=== PATIENT | female | born 2000 | race Caucasian/White ===

== ENCOUNTER 2024-07-09 15:32 | Emergency (ER) | payer OTHER, SELFPAY ==
[2024-07-09 15:35] VITALS: BP 143/84
[2024-07-09 16:16] LABS: % Basophils 0.6 % (0-2); % Eosinophils 1.5 % (0-6); % Immature Granulocytes 0.1 % (0-0.5); % Lymphocytes 33.2 % (20.5-51.1); % Monocytes 6.8 % (1.7-9.3); % Neutrophils 57.8 % (42.2-75.2); Absolute Eosinophils 0.1 10^3/uL (0-0.7); Absolute Lymphocytes 2.3 10^3/uL (1.2-3.4); Absolute Monocytes 0.5 10^3/uL (0.1-0.6); Absolute Neutrophils 3.9 10^3/uL (1.4-6.5); Hematocrit 35.8 % (37.0-47.0); Hemoglobin 12.5 g/dL (12.0-16.0); Mean Corp Hgb Conc. 34.9 g/dL (33.0-37.0); Mean Corpuscular Hgb 31.9 pg (27.0-31.0); Mean Corpuscular Volume 91.3 fL (81.0-99.0); Mean Platelet Volume 10.5 fL (7.4-10.4); Nucleated Red Blood Cells % 0 %; Platelet Count 222 10^3/uL (130-400); Red Blood Cell Count 3.92 10^6/uL (4.20-5.40); Red Cell Dist. Width 12.7 % (11.5-14.5); White Blood Cell Count 6.8 10^3/uL (4.8-10.8)
[2024-07-09 16:23] LABS: HCG, Serum Qualitative Screen Negative
[2024-07-09 16:35] LABS: ALT (SGPT) 16 U/L (0-35); AST (SGOT) 23 U/L (14-36); Alkaline Phosphatase 53 U/L (38-126); Blood Urea Nitrogen 11 mg/dl (7-17); Calcium 9.8 mg/dl (8.4-10.2); Carbon Dioxide 25 mmol/L (22-30); Chloride 102 mmol/L (98-107); Glucose 87 mg/dl (70-99); Lipase 81 U/L (23-300); Potassium 4.6 mmol/L (3.5-5.1); Sodium 137 mmol/L (135-145); Total Bilirubin 0.2 mg/dl (0.2-1.3); Total Protein 7.2 g/dl (6.3-8.2); eGFR > 60.00
--- NOTE | 2024-07-09 20:11 | ED.GENMED ---
History of Present Illness
<Rebeca Capone PA-C - Last Filed: 07/10/24 00:24>
General
Chief Complaint: Abdominal Pain
Source: patient
Exam Limitations: none
Time Seen by Provider: 07/09/24 19:27
Nursing documentation reviewed up to this point in time: agreed with
History of Present Illness
History of Present Illness:
Patient is a 24-year-old female presenting emergency department for evaluation abdominal pain. Patient initially reports onset of left sided abdominal pain which has been constant over the past few days. However�patient states this morning pain
seem to transition into right side of her abdomen. Patient reports very little appetite and 1 episode of vomiting 2 days ago. She has had nausea over the past 2 days, as well. No diarrhea. She has had some urinary frequency although denies any
dysuria or hematuria. No abnormal vaginal bleeding or discharge. Patient is currently sexually active with 1 partner�no suspicion for STD.
Patient's last menstrual period was approximate 2 weeks ago.
Review of Systems
<Rebeca Capone PA-C - Last Filed: 07/10/24 00:24>
Review of Systems
Allergies reviewed?: Yes
All Other Systems: ROS reviewed and negative except as documented in HPI and ROS
Phy Exam
<Rebeca Capone PA-C - Last Filed: 07/10/24 00:24>
Physical Exam
Physical Exam:
Vitals: Patient's vital signs are stable. Afebrile
General: Patient is well appearing, no acute distress. Nontoxic appearing
Skin: Warm and dry, no rashes or lesions
Head: Normocephalic, atraumatic
Eyes: Sclera nonicteric. EOMs intact. No nystagmus.
Throat: Protecting airway
Neck: Normal ROM, no cervical spine tenderness, no meningismus
Cardiac: Regular rate and rhythm, no murmurs.
Pulm: Normal respiratory effort, no wheezes, rales, rhonchi heard on exam.
Abdomen: Abdomen soft. Mild abdominal tenderness throughout lower abdomen/pelvis. No focal tenderness at McBurney's point. No rebound tenderness or guarding. No CVA tenderness
Extremities: No evidence of cyanosis or edema. Palpable DP pulses
Neuro: AAOx3. Grossly intact.
Psychiatric: Normal affect.
Course
<Rebeca Capone PA-C - Last Filed: 07/10/24 00:24>
Orders/Labs/Results
Orders:
Orders
07/09/24 15:38
Test Result ONCE
07/09/24 15:44
Complete Blood Count/With Diff Urgent
Comprehensive Metabolic Panel Urgent
HCG, Serum Qualitative Screen Urgent
Lipase Urgent
07/09/24 19:59
0.9% Sodium Chloride 1000 ml [Nss] 1,000 ml IV BOLUS
Ketorolac [Toradol] 15 mg IV NOW STA
Ondansetron Injectable [Zofran] 4 mg IV NOW STA
US Pelvis Only (non-obstetric) Urgent
Comment:
Reason For Exam: Pelvic pain
07/09/24 22:11
Urinalysis Reflex To Culture Urgent
Date Specimen was Collected: 07/09/24
Time Specimen was Collected: 20:14
Abnormal Lab Results
07/09/24
15:44
RBC 3.92 L 10^6/uL
(4.20-5.40)
Hct 35.8 L %
(37.0-47.0)
MCH 31.9 H pg
(27.0-31.0)
MPV 10.5 H fL
(7.4-10.4)
07/09/24 15:44
07/09/24 15:44
Vital Signs
Initial and Last Documented VS:
Initial Vital Signs
Temp Pulse Resp BP Pulse Ox
98.4 F 101 18 143/84 99
07/09/24 15:35 07/09/24 15:35 07/09/24 15:35 07/09/24 15:35 07/09/24 15:35
Last Documented Vital Signs
Temp Pulse Resp BP Pulse Ox
98.4 F 86 18 128/73 99
07/09/24 15:35 07/09/24 23:10 07/09/24 23:10 07/09/24 23:10 07/09/24 23:10
<Caprice Joyce, DO - Last Filed: 07/09/24 22:57>
Orders/Labs/Results
Orders:
Orders
07/09/24 15:38
Test Result ONCE
07/09/24 15:44
Complete Blood Count/With Diff Urgent
Comprehensive Metabolic Panel Urgent
HCG, Serum Qualitative Screen Urgent
Lipase Urgent
07/09/24 19:59
0.9% Sodium Chloride 1000 ml [Nss] 1,000 ml IV BOLUS
Ketorolac [Toradol] 15 mg IV NOW STA
Ondansetron Injectable [Zofran] 4 mg IV NOW STA
US Pelvis Only (non-obstetric) Urgent
Comment:
Reason For Exam: Pelvic pain
07/09/24 22:11
Urinalysis Reflex To Culture Urgent
Date Specimen was Collected: 07/09/24
Time Specimen was Collected: 20:14
Abnormal Lab Results
07/09/24
15:44
RBC 3.92 L 10^6/uL
(4.20-5.40)
Hct 35.8 L %
(37.0-47.0)
MCH 31.9 H pg
(27.0-31.0)
MPV 10.5 H fL
(7.4-10.4)
07/09/24 15:44
07/09/24 15:44
Vital Signs
Initial and Last Documented VS:
Initial Vital Signs
Temp Pulse Resp BP Pulse Ox
98.4 F 101 18 143/84 99
07/09/24 15:35 07/09/24 15:35 07/09/24 15:35 07/09/24 15:35 07/09/24 15:35
Last Documented Vital Signs
Temp Pulse Resp BP Pulse Ox
98.4 F 86 18 128/73 99
07/09/24 15:35 07/09/24 23:10 07/09/24 23:10 07/09/24 23:10 07/09/24 23:10
<Rebeca Capone PA-C - Last Filed: 07/10/24 00:24>
MDM/Problems Addressed
Differential Diagnosis Includes:
Not limited to: UTI, pyelonephritis, kidney stone, ovarian cyst, ovarian torsion, mesenteric adenitis, mittelschmerz, appendicitis, etc.
MDM/Problems Addressed:
24-year-old female presenting with few days of lower abdominal discomfort. Some associated nausea and urinary frequency. Mild anorexia. No known fevers, diarrhea. No abnormal vaginal discharge or bleeding. Patient has stable vital signs and is
afebrile on arrival to emergency department. On exam�patient is very well-appearing, nontoxic. Her abdomen is soft with mild tenderness in the lower abdomen/pelvis on both right and left side. No rebound tenderness or guarding. No CVA
tenderness. Cardio/pulmonary assessment unremarkable. Labs were initiated in triage and resulted prior to my assessment. There is no leukocytosis or left shift. Chemistry without any abnormalities. test is negative. Differential at
this time although lower suspicion for acute intra-abdominal infection given patient is afebrile with no leukocytosis although appendicitis/other infections remain in differential. Somewhat high suspicion for pelvic etiology given exam. Will give
IV fluids and Toradol. Will check urinalysis and start with pelvic ultrasound. Plan for possible CT abdomen initial workup negative.
Update: Urinalysis reviewed which shows no signs of infection or red blood cells. Pelvic ultrasound report reviewed which does show a moderate amount of free fluid in the cul-de-sac. However no specific ovarian cyst. Blood flow documented to both
ovaries. High suspicion for likely ruptured ovarian cyst given free fluid. However given not definitive diagnosis CT scan patient at length. Shared decision making utilized and patient prefers to hold on CT scan at this time. She is feeling
better after Toradol. Did discuss possibility of missing possible appendicitis/other abdominal pathology without CAT scan which patient understands. She will monitor closely at home any signs of worsening infection and return promptly.
However�feel this is a reasonable approach given patient's hemodynamic stability and normal laboratory analysis.
Chronic conditions affecting care:
N/A
Acute Exacerbation and/or Progression of Chronic Illness:
N/A
<Rebeca Capone PA-C - Last Filed: 07/10/24 00:24>
*Radiology
Radiology exam reviewed: radiology read reviewed
*Pulse Oximetry
Patient hypoxic: no
*EKG
Interpreted by ED Provider?: NA
*Admitting Officer Interpretation
Rate: Admitting Officer- N/A
*Critical Care Note
Total Time (30-74mins, 75-104mins- exclusive of procedures): Not Applicable
ED Attending Note
<Caprice Joyce DO - Last Filed: 07/09/24 22:57>
ED Attending Note
Patient seen and examined by attending physician: Yes
I performed the substantive portion of visit, reviewed & personally made and approve the management plan that is documented in note by myself or MEMO.: Yes
I performed a history and physical exam of patient and discussed management with resident, I reviewed resident's note and agree with documented findings and plan of care.: Yes
ED Attending Note:
24-year-old female without significant past medical history presenting for lower abdominal pain. Symptoms started 2 days ago. Initially started as left lower crampy abdominal pain, has since migrated to the right lower abdomen. Also reports
urinary frequency with history of UTI in the past. Denies any abdominal surgeries. Does report an episode of vomiting 2 days ago and overall decreased p.o. intake. Denies fever. Vital signs are normal.
On exam patient is overall well-appearing, no acute distress or discomfort. She is nontoxic in appearance with overall benign abdominal exam, mild tenderness to the right lower pelvic/quadrant region. Differential considerations include cystitis
versus ovarian cyst versus appendicitis. Initiated workup with laboratory analysis and ultrasound imaging, urinalysis, urine
22:40 -ultrasound shows normal flow to bilateral ovaries, however reportedly moderate amount of free fluid in the pelvis. Possible ruptured cyst. Discussed proceeding with CT imaging for location of pain, however patient reports her pain is
currently controlled and would prefer to monitor symptoms. Feel reasonable given hemodynamic stability and normal laboratory analysis. Strict return precautions communicated and patient verbalized understanding
-
Portions of this chart may have been created with voice recognition software.� Occasional wrong word or��sound alike� substitutions may have occurred due to the inherent limitations of voice recognition software.
Discharge Plan
Departure
Patient Disposition: Home (Routine Discharge)
Date of Disposition: 07/09/24
Time of Disposition: 22:53
Patient with high blood pressure during this ER visit?: No
Condition: Good
Covid-19: Not Applicable
Discharge Problem:
Abdominal pain
Instructions: Pelvic Pain ED, Abdominal pain in adults - ED discharge instructions
Referrals:
DANNY MORGAN [Other]
Allison Raman DO [Active] - Next open appointment
Activity Restrictions/Additional Instructions:
RETURN TO THE EMERGENCY DEPARTMENT WITH ANY FEVERS, WORSENING/PERSISTENT ABDOMINAL PAIN, INTRACTABLE NAUSEA/VOMITING, LACK OF APPETITE, DIZZINESS/LIGHTHEADEDNESS, WORSENING IN CURRENT SYMPTOMS OR ANY OTHER CONCERNS
-As discussed�it is very important that you monitor your symptoms closely.
-You can continue to take Motrin/ibuprofen as needed for discomfort. Stay very well-hydrated. I recommend a bland diet as needed and slowly advance as tolerated
-Follow-up with your primary care for further evaluation/management. You should also follow-up with your [employer]. Contact information has been provided for you above.
Monitor your symptoms closely and return to the emergency department with any acute worsening/new symptoms or any other concerns
Interventions
Interventions:
*Risk Screen - Suicide Last Done: 07/09/24 15:35
*General Assessment Last Done: 07/09/24 15:35
*Neglect/Abuse Screening Last Done: 07/09/24 15:35
*Nursing Disposition Last Done: 07/09/24 23:12
DR-Bolaut-Nlnypbppzj Assessment Last Done: 07/09/24 20:25
Discharge Date and Time
Discharge Date/Time: 07/09/24 23:12
Print Language: [id number]
[2024-07-09] MEDS: ZOFRAN 4 MG IV (20:20)
[2024-07-09] MEDS: NSS 1000 IV (20:21)
[2024-07-09] MEDS: TORADOL 15 MG IV (20:21)
[2024-07-09 22:15] VITALS: BP 120/74
[2024-07-09 22:18] LABS: Urine Albumin Trace (Neg - Trace); Urine Bilirubin Negative (Negative); Urine Character Clear (Clear); Urine Color Yellow; Urine Glucose Negative (Negative); Urine Ketone Negative (Negative); Urine Leukocyte Negative (Negative); Urine Nitrite Negative (Negative); Urine Occult Blood Negative (Negative); Urine Urobilinogen Negative (Neg - 1+)
[2024-07-09 23:10] VITALS: BP 128/73
== END 2024-07-09 23:12 | disposition home or self-care (01) ==
LOC: EMR 15:32
PROVIDERS: Physician Assistant; Student in an Organized Health Care Education/Training Program; EMERGENCY PHYSICIAN Student in an Organized Health Care Education/Training Program
DX: R10.32 Left lower quadrant pain (principal); R11.2 Nausea with vomiting, unspecified; R35.0 Frequency of micturition; R10.31 Right lower quadrant pain; Z88.1 Allergy status to other antibiotic agents; Z88.5 Allergy status to narcotic agent
CPT/HCPCS: 99284; 96374; 96375; 96361; 76856; 80053; 81003; 83690; 84703; 85025